=== PATIENT | female | born 1985 | race Caucasian/White ===

== ENCOUNTER 2016-05-18 08:45 | Observation (INO) | payer OTHER ==
[~2016-05-18] VITALS: Ht 160 cm; Wt 88.5 kg
[2016-05-18 10:00] VITALS: BP 120/60
[2016-05-18] MEDS ORDERED: NATURAL IRON65 MG PO (11:02)
[2016-05-18] MEDS ORDERED: PRENATAL LOW IR1 TA1 PO (11:02)
[2016-05-19] MEDS ORDERED: PRENATAL VITAMI1 TA2 PO (03:54)
[2016-05-19] MEDS ORDERED: FERROUS SULFAT325 M1 PO (03:54)
== END 2016-05-18 13:40 | disposition home or self-care (01) ==
LOC: MLD 08:45
PROVIDERS: ADMIT Obstetrics & Gynecology; ATTEND Obstetrics & Gynecology
DX: O62.9 Abnormality of forces of labor, unspecified (principal); Z3A.00 Weeks of gestation of pregnancy not specified
CPT/HCPCS: 59025; 81000; G0378

== ENCOUNTER 2016-05-18 23:45 | Inpatient (IN) | payer OTHER ==
[~2016-05-18] VITALS: Ht 160 cm; Wt 88.5 kg
[~2016-05-18 23:45] MED LIST: NATURAL IRON65 MG PO; PRENATAL LOW IR1 TA1 PO
[2016-05-19] MEDS: LACTATED RINGERS 1,000 ML IV SCH ×2 (00:17→01:44)
[2016-05-19] MEDS ORDERED: NALBUPHINE HYDROCHLORIDE 10 MG/ML VIAL IVP PRN (00:20)
[2016-05-19] MEDS ORDERED: OXYTOCIN 20 UNITS/LR PREMIX 1,000 ML IV SCH (00:20)
[2016-05-19] MEDS ORDERED: PROMETHAZINE 25 MG/ML VIAL IVP PRN (00:20)
[2016-05-19 00:25] VITALS: BP 150/81
[2016-05-19] MEDS ORDERED: ROPIVACAINE 0.2%/NS PREMIX 250 ML EPI ONE (00:57)
[2016-05-19] MEDS ORDERED: fentaNYL 0.05 MG/ML VIAL ONE (00:57)
[2016-05-19] MEDS ORDERED: FERROUS SULFAT325 M1 PO (03:54)
[2016-05-19] MEDS ORDERED: PRENATAL VITAMI1 TA2 PO (03:54)
[2016-05-19] MEDS ORDERED: OXYTOCIN 20 UNITS/LR PREMIX 1,000 ML IV ONE (06:28)
[2016-05-19] MEDS ORDERED: METHYLERGONOVINE 0.2 MG/ML AMP ONE (07:53)
[2016-05-19] MEDS ORDERED: oxyCODONE/APAP 5/325 MG 1 TAB TAB PO PRN (08:30)
[2016-05-19] MEDS ORDERED: OXYTOCIN 10 UNITS/ML VIAL IM PRN (08:30)
[2016-05-19] MEDS ORDERED: HYDROcodone/APAP 5/325 MG 1 TAB TAB PO PRN (08:30)
[2016-05-19] MEDS ORDERED: TEMAZEPAM 15 MG CAP PO PRN (08:30)
[2016-05-19] MEDS ORDERED: BENZOCAINE/MENTHOL 20%-0.5% 60 GM CAN TP PRN (08:30)
[2016-05-19] MEDS ORDERED: MEASLES, MUMPS, AND RUBELLA 1 VIAL SQVAC PRN (08:30)
[2016-05-19] MEDS ORDERED: METHYLERGONOVINE 0.2 MG/ML AMP IM PRN (08:30)
--- NOTE | 2016-05-19 08:33 | NUR ---
PATIENT HAS BEEN SCREENED AND CATEGORIZED LOW NUTRITION RISK. PATIENT WILL BE SEEN WITHIN 7 DAYS OF ADMISSION. 05/25/16 [address]
[2016-05-19] MEDS ORDERED: IBUPROFEN 800 MG TAB ONE (09:11)
[2016-05-19] MEDS: IBUPROFEN 800 MG TAB PO PRN ×3 (09:11→21:31)
[2016-05-19] MEDS ORDERED: DOCUSATE SOD/SENNA 50/8.6 MG 1 TAB PO SCH (21:00)
[2016-05-20] MEDS: IBUPROFEN 800 MG TAB PO PRN ×2 (03:59→09:27)
== END 2016-05-20 14:15 | disposition home or self-care (01) | DRG 775 ==
LOC: MLD 23:45 → EEVIPCON 23:45 → OBSVTOIN 05-19 → MFCC 05-19 11:19
PROVIDERS: ADMIT Obstetrics & Gynecology; ATTEND Obstetrics & Gynecology
PROC: 10E0XZZ Delivery of Products of Conception, External Approach (ICD-10-PCS; principal; 2016-05-19)
PROC: 0HQ9XZZ Repair Perineum Skin, External Approach (ICD-10-PCS; 2016-05-19)
PROC: 3E0S3CZ (ICD-10-PCS; 2016-05-19)
PROC: 00HU33Z Insertion of Infusion Device into Spinal Canal, Percutaneous Approach (ICD-10-PCS; 2016-05-19)
PROC: 3E0234Z Introduction of Serum, Toxoid and Vaccine into Muscle, Percutaneous Approach (ICD-10-PCS; 2016-05-19)
DX: O70.0 First degree perineal laceration during delivery (principal); Z3A.38 38 weeks gestation of pregnancy; Z37.0 Single live birth; Z23 Encounter for immunization

== ENCOUNTER 2019-02-15 06:59 | Outpatient (CLI) | payer OTHER ==
[~2019-02-15 06:59] MED LIST changes: +FERR-15 PO; +FERR-252 PO; -NATURAL IRON65 MG PO; +PREN-380 PO; +PREN-546 PO; -PRENATAL LOW IR1 TA1 PO
[2019-02-15 07:27] LABS: APPEARANCE,URINE CLEAR (CLEAR); BILIRUBIN,URINE NEGATIVE (NEGATIVE); BLOOD, URINE TRACE-I (NEGATIVE); COLOR,URINE YELLOW (YELLOW); LEUKOCYTE ESTERASE ,URINE NEGATIVE (NEGATIVE); NITRITE, URINE NEGATIVE (NEGATIVE); UGLUCOSE NEGATIVE (NEGATIVE)
[2019-02-15 07:37] LABS: RBC,URINE 0-5 /HPF (0-5); WBC,URINE 0-5 /HPF (0-5)
[2019-02-15 07:52] LABS: BASOPHILS % (AUTO) 0.3 % (0.0-2.0); EOSINOPHILS # (AUTO) 0.1 K/uL (0-0.4); EOSINOPHILS % (AUTO) 0.9 % (0.0-4.0); HEMATOCRIT 38.4 % (36-48); HEMOGLOBIN 12.9 g/dL (12.0-16.0); LYMPHOCYTES # (AUTO) 1.6 K/uL (2.5-16.5); MEAN CORPUSCULAR HEMOGLOBIN 31 pg (27-31); MEAN CORPUSCULAR HGB CONC 34 g/dL (33-37); MEAN CORPUSCULAR VOLUME 92.8 fL (80-94); MONOCYTES # (AUTO) 0.5 K/uL (0.8-1.0); MONOCYTES % (AUTO) 7.4 % (1.7-9.3); NEUTROPHILS # (AUTO) 5.1 K/uL (1.8-7.7); NEUTROPHILS % (AUTO) 69.4 % (42.2-75.2); PLATELET COUNT (AUTO) 330 K/uL (140-450); RED BLOOD CELL COUNT(AUTO) 4.13 MIL/uL (4.20-5.40); RED CELL DISTRIBUTION WIDTH 13.4 % (11.6-13.7); WHITE BLOOD COUNT (AUTO) 7.4 K/uL (4.8-10.8)
[2019-02-16 09:13] LABS: HEPATITIS B SURFACE ANTIGEN Negative (Negative)
== END 2019-02-15 20:19 | disposition home or self-care (01) ==
LOC: MLB 06:59
PROVIDERS: ATTEND Obstetrics & Gynecology
DX: Z34.90 Encounter for supervision of normal pregnancy, unspecified, unspecified trimester (principal); N30.00 Acute cystitis without hematuria; Z3A.00 Weeks of gestation of pregnancy not specified
CPT/HCPCS: 36415; 81001; 83036; 84702; 85025; 86592; 86762; 86900; 86901; 87340

== ENCOUNTER 2019-04-12 06:55 | Outpatient (CLI) | payer OTHER ==
[2019-04-12 09:38] LABS: GLUCOSE,FASTING GESTATIONAL 79 mg/dL (70-110)
[2019-04-13 09:06] LABS: HEPATITIS B SURFACE ANTIGEN Negative (Negative)
== END 2019-04-12 21:22 | disposition home or self-care (01) ==
LOC: MLB 06:55
DX: Z34.90 Encounter for supervision of normal pregnancy, unspecified, unspecified trimester (principal); Z31.430 Encounter of female for testing for genetic disease carrier status for procreative management
CPT/HCPCS: 36415; 82951; 86592; 86702; 86762; 86900; 86901; 87340

== ENCOUNTER 2019-07-03 07:23 | Outpatient (CLI) | payer OTHER ==
[2019-07-03 08:16] LABS: BASOPHILS # (AUTO) 0.1 K/uL (0.00-0.22); BASOPHILS % (AUTO) 0.6 % (0.0-2.0); EOSINOPHILS # (AUTO) 0.1 K/uL (0-0.4); HEMATOCRIT 36.3 % (36-48); HEMOGLOBIN 12.3 g/dL (12.0-16.0); LYMPHOCYTES # (AUTO) 1.6 K/uL (2.5-16.5); LYMPHOCYTES % (AUTO) 18.3 % (20.5-51.1); MEAN CORPUSCULAR HEMOGLOBIN 32 pg (27-31); MEAN CORPUSCULAR HGB CONC 34 g/dL (33-37); MEAN CORPUSCULAR VOLUME 95.2 fL (80-94); MONOCYTES # (AUTO) 0.7 K/uL (0.8-1.0); MONOCYTES % (AUTO) 7.6 % (1.7-9.3); NEUTROPHILS # (AUTO) 6.5 K/uL (1.8-7.7); NEUTROPHILS % (AUTO) 72.5 % (42.2-75.2); PLATELET COUNT (AUTO) 277 K/uL (140-450); RED BLOOD CELL COUNT(AUTO) 3.81 MIL/uL (4.20-5.40); RED CELL DISTRIBUTION WIDTH 13.7 % (11.6-13.7)
[2019-07-03 08:52] LABS: THYROID STIMULATING HORMONE 1.97 uIU/mL (0.34-3.74)
[2019-07-05 06:10] LABS: CHLAMYDIA TRACHOMATIS AMP DNA Negative (Negative)
== END 2019-07-03 21:22 | disposition home or self-care (01) ==
LOC: MLB 07:23
PROVIDERS: ATTEND Obstetrics & Gynecology
DX: Z34.90 Encounter for supervision of normal pregnancy, unspecified, unspecified trimester (principal); Z3A.00 Weeks of gestation of pregnancy not specified
CPT/HCPCS: 36415; 82951; 84443; 85025; 86592; 86803; 87491

== ENCOUNTER 2019-09-13 23:46 | Inpatient (IN) | payer OTHER ==
[~2019-09-13] VITALS: Ht 160 cm; Wt 87.1 kg
[2019-09-13] MEDS: LACTATED RINGERS 1,000 ML IV SCH (00:35)
[2019-09-14] MEDS ORDERED: OXYTOCIN 20 UNITS in LACTATED RINGERS 1,000 ML IV SCH ×2
[2019-09-14] MEDS ORDERED: MORPHINE SULFATE 5 MG/ML VIAL IVP PRN
[2019-09-14] MEDS ORDERED: fentaNYL 0.05 MG/ML VIAL IVP PRN
[2019-09-14] MEDS ORDERED: PROMETHAZINE 25 MG/ML VIAL IVP PRN
[2019-09-14 00:27] LABS: BASOPHILS # (AUTO) 0.1 K/uL (0.00-0.22); BASOPHILS % (AUTO) 0.5 % (0.0-2.0); EOSINOPHILS % (AUTO) 0.4 % (0.0-4.0); HEMATOCRIT 35.5 % (36-48); LYMPHOCYTES # (AUTO) 1.5 K/uL (2.5-16.5); LYMPHOCYTES % (AUTO) 13.1 % (20.5-51.1); MEAN CORPUSCULAR HEMOGLOBIN 32 pg (27-31); MEAN CORPUSCULAR HGB CONC 34 g/dL (33-37); MEAN CORPUSCULAR VOLUME 95.3 fL (80-94); MONOCYTES # (AUTO) 0.7 K/uL (0.8-1.0); MONOCYTES % (AUTO) 5.8 % (1.7-9.3); NEUTROPHILS # (AUTO) 9.1 K/uL (1.8-7.7); NEUTROPHILS % (AUTO) 80.2 % (42.2-75.2); PLATELET COUNT (AUTO) 247 K/uL (140-450); RED BLOOD CELL COUNT(AUTO) 3.72 MIL/uL (4.20-5.40); RED CELL DISTRIBUTION WIDTH 13.5 % (11.6-13.7); WHITE BLOOD COUNT (AUTO) 11.3 K/uL (4.8-10.8)
[2019-09-14 00:35] LABS: APPEARANCE,URINE HAZY (CLEAR); BILIRUBIN,URINE NEGATIVE (NEGATIVE); BLOOD, URINE 2+ (NEGATIVE); COLOR,URINE YELLOW (YELLOW); LEUKOCYTE ESTERASE ,URINE TRACE (NEGATIVE); NITRITE, URINE NEGATIVE (NEGATIVE); PH,URINE 6.5 (5.0-9.0); UGLUCOSE NEGATIVE (NEGATIVE)
[2019-09-14 00:46] LABS: ALBUMIN 2.9 g/dL (3.4-5.0); ANION GAP 15.7 (8-16); CARBON DIOXIDE 21.2 mmol/L (21-32); CREATININE 0.7 mg/dL (0.6-1.3); POTASSIUM 3.9 mmol/L (3.5-5.1); TOTAL BILIRUBIN 0.5 mg/dL (0.0-1.0)
[2019-09-14 00:54] LABS: RBC,URINE 0-5 /HPF (0-5)
[2019-09-14] MEDS ORDERED: ROPIVACAINE 0.2%/NS PREMIX 200 ML EPI ONE (01:28)
[2019-09-14] MEDS: LACTATED RINGERS 1,000 ML IV SCH (01:54)
[2019-09-14] MEDS ORDERED: ROPIVACAINE 0.2%/NS PREMIX 100 ML EPI SCH (02:05)
[2019-09-14 02:09] VITALS: BP 130/73
[2019-09-14] MEDS ORDERED: OXYTOCIN 20 UNITS/LR PREMIX 1,000 ML IV ONE (03:08)
[2019-09-14] MEDS ORDERED: LIDOCAINE 1% 500 MG/50 ML VIAL ONE (03:13)
[2019-09-14] MEDS ORDERED: TEMAZEPAM 15 MG CAP PO PRN (03:40)
[2019-09-14] MEDS ORDERED: MEASLES, MUMPS, AND RUBELLA 1 VIAL SQVAC PRN (03:40)
[2019-09-14] MEDS ORDERED: HYDROcodone/APAP 5/325 MG 1 TAB TAB PO PRN (03:40)
[2019-09-14] MEDS ORDERED: oxyCODONE/APAP 5/325 MG 1 TAB TAB PO PRN (03:40)
[2019-09-14] MEDS ORDERED: BENZOCAINE/MENTHOL 20%-0.5% 60 GM CAN TP PRN (03:40)
[2019-09-14] MEDS ORDERED: METHYLERGONOVINE 0.2 MG/ML AMP IM PRN ×2 (03:40)
[2019-09-14] MEDS ORDERED: OXYTOCIN 10 UNITS/ML VIAL IM PRN (03:40)
[2019-09-14] MEDS: IBUPROFEN 800 MG TAB PO PRN ×2 (14:48→21:07)
[2019-09-14] MEDS ORDERED: DOCUSATE SOD/SENNA 50/8.6 MG 1 TAB PO SCH (21:00)
[2019-09-15 06:04] LABS: HEMATOCRIT 32.9 % (36-48); HEMOGLOBIN 11.1 g/dL (12.0-16.0)
--- NOTE | 2019-09-15 08:16 | NUR ---
PATIENT HAS BEEN SCREENED AND CATEGORIZED LOW NUTRITION RISK. PATIENT WILL BE SEEN WITHIN 7 DAYS OF ADMISSION. 09/20/19 JESSICA NICK MBA, RD
== END 2019-09-15 11:10 | disposition home or self-care (01) | DRG 807 ==
LOC: MLD 23:46 → OBSVTOIN 23:46 → MFCC 09-14 08:00
PROVIDERS: ADMIT Obstetrics & Gynecology; ATTEND Obstetrics & Gynecology
PROC: 10E0XZZ Delivery of Products of Conception, External Approach (ICD-10-PCS; principal; 2019-09-14)
PROC: 3E033VJ Introduction of Other Hormone into Peripheral Vein, Percutaneous Approach (ICD-10-PCS; 2019-09-14)
PROC: 3E0R3BZ Introduction of Anesthetic Agent into Spinal Canal, Percutaneous Approach (ICD-10-PCS; 2019-09-14)
PROC: 00HU33Z Insertion of Infusion Device into Spinal Canal, Percutaneous Approach (ICD-10-PCS; 2019-09-14)
PROC: 0HQ9XZZ Repair Perineum Skin, External Approach (ICD-10-PCS; 2019-09-14)
DX: O77.0 Labor and delivery complicated by meconium in amniotic fluid (principal); Z37.0 Single live birth; O70.0 First degree perineal laceration during delivery; Z3A.37 37 weeks gestation of pregnancy
CPT/HCPCS: 36415; 51702; 59409; 80053; 81001; 85018; 85025; 86592; 86870; 86886; 86900; 86901; 87086; 90715; J2001; J2590; J2795; J3010; J7120

== ENCOUNTER 2022-07-27 08:22 | Outpatient (CLI) | payer OTHER ==
[~2022-07-27 08:22] MED LIST changes: -FERR-15 PO; -PREN-546 PO
[2022-07-27 09:12] LABS: BASOPHILS % (AUTO) 0.6 % (0.0-2.0); EOSINOPHILS # (AUTO) 0.1 K/uL (0-0.4); EOSINOPHILS % (AUTO) 1.2 % (0.0-4.0); HEMATOCRIT 36.7 % (36-48); HEMOGLOBIN 12.4 g/dL (12.0-16.0); LYMPHOCYTES # (AUTO) 1.7 K/uL (2.5-16.5); MEAN CORPUSCULAR HEMOGLOBIN 31 pg (27-31); MEAN CORPUSCULAR HGB CONC 34 g/dL (33-37); MEAN CORPUSCULAR VOLUME 91.7 fL (80-94); MONOCYTES # (AUTO) 0.4 K/uL (0.8-1.0); MONOCYTES % (AUTO) 8.1 % (1.7-9.3); NEUTROPHILS # (AUTO) 3.1 K/uL (1.8-7.7); NEUTROPHILS % (AUTO) 58.1 % (42.2-75.2); PLATELET COUNT (AUTO) 299 K/uL (140-450); RED BLOOD CELL COUNT(AUTO) 4.01 MIL/uL (4.20-5.40); RED CELL DISTRIBUTION WIDTH 13.1 % (11.6-13.7); WHITE BLOOD COUNT (AUTO) 5.3 K/uL (4.8-10.8)
[2022-07-27 09:43] LABS: ALBUMIN 3.6 g/dL (3.4-5.0); ANION GAP 10.9 (8-16); CARBON DIOXIDE 27.3 mmol/L (21-32); CREATININE 0.6 mg/dL (0.6-1.3); POTASSIUM 4.2 mmol/L (3.5-5.1); THYROID STIMULATING HORMONE 1.14 uIU/mL (0.34-3.74); TOTAL BILIRUBIN 0.4 mg/dL (0.0-1.0)
== END 2022-07-27 19:46 | disposition home or self-care (01) ==
LOC: MLB 08:22
PROVIDERS: ATTEND Family Medicine
DX: M25.562 Pain in left knee (principal)
CPT/HCPCS: 36415; 73562; 80053; 82306; 84443; 85025

== ENCOUNTER 2023-11-24 07:50 | Outpatient (CLI) | payer OTHER ==
[2023-11-24 08:21] LABS: BASOPHILS % (AUTO) 0.8 % (0.0-2.0); EOSINOPHILS # (AUTO) 0.1 K/uL (0-0.4); EOSINOPHILS % (AUTO) 1.7 % (0.0-4.0); HEMATOCRIT 36.8 % (36-48); HEMOGLOBIN 12.6 g/dL (12.0-16.0); LYMPHOCYTES # (AUTO) 1.5 K/uL (2.5-16.5); LYMPHOCYTES % (AUTO) 27.2 % (20.5-51.1); MEAN CORPUSCULAR HEMOGLOBIN 31 pg (27-31); MEAN CORPUSCULAR HGB CONC 34 g/dL (33-37); MEAN CORPUSCULAR VOLUME 91.6 fL (80-94); MONOCYTES # (AUTO) 0.4 K/uL (0.8-1.0); MONOCYTES % (AUTO) 7.1 % (1.7-9.3); NEUTROPHILS # (AUTO) 3.4 K/uL (1.8-7.7); NEUTROPHILS % (AUTO) 63.2 % (42.2-75.2); PLATELET COUNT (AUTO) 366 K/uL (140-450); RED BLOOD CELL COUNT(AUTO) 4.02 MIL/uL (4.20-5.40); RED CELL DISTRIBUTION WIDTH 13.1 % (11.6-13.7); WHITE BLOOD COUNT (AUTO) 5.4 K/uL (4.8-10.8)
[2023-11-24 08:58] LABS: ALBUMIN 3.7 g/dL (3.4-5.0); ANION GAP 12.8 (8-16); CALCIUM 8.6 mg/dL (8.5-10.1); CARBON DIOXIDE 26.6 mmol/L (21-32); CHOL/HDL RATIO 2.8 (1-4.5); CREATININE 0.6 mg/dL (0.6-1.3); POTASSIUM 4.4 mmol/L (3.5-5.1); TOTAL BILIRUBIN 0.4 mg/dL (0.0-1.0); TOTAL PROTEIN, SERUM 7.5 g/dL (6.4-8.2)
[2023-11-25 09:06] LABS: HEMOGLOBIN A1C 5.4 % (4.8-5.6)
== END 2023-11-24 21:57 | disposition home or self-care (01) ==
LOC: MLB 07:50
PROVIDERS: ATTEND Family Medicine
DX: Z00.01 Encounter for general adult medical examination with abnormal findings (principal)
CPT/HCPCS: 36415; 80053; 82306; 83036; 84443; 85025